=== PATIENT | male | born 1990 | race Caucasian/White ===

== ENCOUNTER 2021-03-02 17:44 | Inpatient (IN) ==
--- OUTSIDE RECORDS SUMMARY | 2021-03-02 17:47 | External Medical Summary | Continuity of Care Document ---
:1990 Author Name Tim Ochoa, Provider Address Unavailable Unavailable , Care Team Providers Name Role Phone Zafar Pierre DMD Unavailable [email or web address] GLYNN ANDRADE Unavailable Unavailable Unavailable Unavailable Unavailable Assessments Assessment Narrative:Lilia is doing very well, the lip is very well healed and looks great, no numbness noted. The scarline is getting softer and the cosmetics looks good. Lilia is pleased with the results. 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) Allergies and Adverse Reactions No Known Drug Allergies (Allergy) Medications No Reported Medications Refills: 0 Procedures History of Oral Surgery Tooth Extraction Status: Completed History of Tonsillectomy Status: Complet ed History of Surgery Testis Orchiectomy St atus: Completed Immunizations Immunizations not documented Family History Unknown Family Member Family history of Heart Disease (V17.49) Status: Active Comments: Family History Family history of Hypertension (V17.49) Status: Active Comments: Family History Family history of Nephrolithiasis Status: Active Commen ts: Family History Family history of Colon Cancer (V16.0) Status: Active C omments: Family History Family history of Ovarian Cancer (V16.41) Status: Active Comments: Family History Father Family history of Diabetes Mellitus (V18.0) Status: Active Social History - Smoking Status Never smoked tobacco Plan of Treatment Planned Observations Planned Goals not documented Results No Known Results Results not documented Encounters Appointment; Zafar Pierre DMD 22-Dec-2018 9:15 Encounter Diagnosis: Problem not documented
--- OUTSIDE RECORDS SUMMARY | 2021-03-02 17:47 | External Medical Summary | Continuity of Care Document ---
:1990 Author Name Tim Ochoa, Provider Address Unavailable Unavailable , Care Team Providers Name Role Phone Zafar Pierre DMD Unavailable [email or web address] GLYNN ANDRADE Unavailable Unavailable Unavailable Unavailable Unavailable Assessments Assessment Narrative:Lilia is doing very well, the lip is very well healed and looks great, no numbness noted. The scarline is getting softer and the cosmetics looks good. Lilia is pleased with the results. 

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
[2021-03-02 19:26] LABS: Appearance Urine Clear (Clear); Bilirubin Urine Negative (Negative); Blood Urine Negative (Negative); Color Urine Yellow; Glucose Urine UA Negative (Negative); Ketones Urine 2+ (Negative); Leukocyte Esterase Urine Negative (Negative); Nitrite Urine Negative (Negative); Protein Urine Negative (Negative); Specific Gravity Urine 1.021 (1.000-1.030); Urobilinogen Urine Negative (Negative); pH Urine 6.5 (4.5-7.5)
[2021-03-02 19:43] LABS: Basophils # (auto) 0.04 K/uL (0-0.2); Basophils % (auto) 0.5 %; Eosinophils # (auto) 0.09 K/uL (0-0.5); Eosinophils % (auto) 1.1 %; Hemoglobin 16.4 g/dL (14.0-18.0); Immature Granulocytes # (auto) 0.02 K/uL (0.00-0.02); Immature Granulocytes % (auto) 0.3 %; Lymphocytes # (auto) 1.11 K/uL (1.2-3.4); Mean Corpuscular Hemoglobin 32.3 pg (25-34); Mean Corpuscular Hgb Conc 35.7 g/dL (32-36); Mean Corpuscular Volume 90.6 fL (80-100); Mean Platelet Volume 12.1 fL (7.4-10.4); Monocytes # (auto) 0.62 K/uL (0.11-0.59); Monocytes % (auto) 7.8 %; Neutrophils # (auto) 6.03 K/uL (1.4-6.5); Neutrophils % (auto) 76.3 %; Platelet Count 184 K/uL (130-400); RDW Coefficient of Variation 12.5 % (11.5-14.5); RDW Standard Deviation 41.7 fL (36.4-46.3); Red Blood Count 5.08 M/uL (4.7-6.1); White Blood Count 7.91 K/uL (4.8-10.8)
[2021-03-02 19:50] LABS: Amphetamines+Metham, Urine Neg (Neg); Barbiturates, Urine Neg (Neg); Benzodiazepine, Urine Neg (Neg); Cocaine, Urine Neg (Neg); MDMA (Ecstacy), Urine Neg (Neg); Methadone, Urine Neg (Neg); Opiate, Urine Neg (Neg); Phencyclidine, Urine Neg (Neg)
[2021-03-02 20:06] LABS: BUN Creatinine Ratio 14.4 (10-20); Calcium 8.9 mg/dl (8.5-10.1); Creatinine Clr Calc Pharmacy 119.5 ml/min; Est GFR (African American) 112.7; Est GFR (Non-African American) 97.3; Potassium 3.8 mmol/L (3.5-5.1)
[2021-03-02 20:16] LABS: Albumin Globulin Ratio 1.1 (0.9-2); Bilirubin,Total 0.6 mg/dl (0.2-1); Globulin 3.7 gm/dl (2.5-4.0); Thyroid Stimulating Hormone 2.4 uIu/ml (0.300-4.500); Total Protein 7.7 gm/dl (6.4-8.2)
[2021-03-02 20:28] LABS: Influenza A virus by PCR Negative (Neg); Influenza B virus by PCR Negative (Neg); RSV by PCR Negative (Neg); SARS CoV2 RNA(COVID-19) InHosp NEGATIVE (Negative)
[2021-03-02 20:47] LABS: Acetaminophen < 2 ug/ml (10-30)
[2021-03-02 20:48] LABS: Salicylate < 1.7 mg/dl (2.8-20)
[2021-03-02] MEDS ORDERED: BISMUTH SUBSALICYLATE LIQD 236 ML PO PRN (22:04)
[2021-03-02] MEDS ORDERED: ACETAMINOPHEN 325 MG TAB PO PRN (22:04)
[2021-03-02] MEDS ORDERED: hydrOXYzine HCl 25 MG TAB PO PRN (22:04)
[2021-03-02] MEDS ORDERED: SODIUM CHLORIDE 0.65% NA SOLN 45 ML (OCEAN) PRN (22:04)
[2021-03-02] MEDS ORDERED: ALUMINUM/MAGNESIUM SUSP 30 ML UDC PO PRN (22:04)
[2021-03-02] MEDS ORDERED: MAGNESIUM HYDROXIDE SUSP 30 ML UDC PO PRN (22:04)
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
[2021-03-03] MEDS: NICOTINE 14 MG/24 HR PATCH TD SCH (08:46)
[2021-03-03] MEDS ORDERED: FLUoxetine HCL 10 MG CAP PO STA (09:44)
[2021-03-03] MEDS: NICOTINE POLACRILEX 2 MG GUM MT PRN ×2 (15:30→17:18)
[2021-03-03] MEDS: hydrOXYzine HCl 25 MG TAB PO PRN (21:26)
[2021-03-04] MEDS: FLUoxetine HCL 20 MG CAP PO SCH (07:26)
[2021-03-04] MEDS: NICOTINE 14 MG/24 HR PATCH TD SCH (07:26)
--- NOTE | 2021-03-04 09:38 | Psychiatric Progress Note ---
Date of Service March 04, 2021 Impression / Recommendations Impression 30 y/o single male with a h/o alcohol abuse and untreated depression who presents after a suicide attempt by handgun. Inpatient treatment is medically necessary due to severity of symptoms and risk of suicide if discharged prematurely. (1) Depression with suicidal ideation: 03/03 - Reviewed diagnosis and treatment recommendations, discussed trial of an SSRI, he agreed to fluoxetine. Reviewed risks, benefits and side effects. - Encourage group attendance and participation, work on healthy coping skills and discharge safety plan. - Family meeting with father, plan to secure guns. 03/04 - Fluoxetine increased to 20mg this morning - continue discussion regarding titration as indicated/tolerated - Family meeting with father this morning - Continue to encourage development of healthy and effective coping strategies. - Refer for outpatient psychiatric treatment - Assist with completion of a safety plan (2) Alcohol abuse: 03/03 - Brief intervention was offered and accepted. Intervention was greater than 5 min in length. Brief interventions include: 1. Assess Readiness to Quit, 2. Advise: Help Patient to Reduce or Abstain from Alcohol, 3. Agree: Set Specific, Feasible Goals, 4. Assist: Anticipate barriers, Problem-Solving Solutions. Social work to 5. Arrange: Referrals to appropriate treatment. Summary of intervention: The patient is in precontemplation stage with regards to transtheoretical model of change. The patient is advised to decrease alcohol consumption due to depressant effects and risk of interactions with prescription medications. The patient agreed to ongoing education/discussion and will be provided with recovery materials to continue to education self on how to cope with their condition without drinking. Risk Factors Assessment Male: Yes : Yes Do You Have Access To A Gun?: Yes Health Problems: No Mental Health Diagnoses: Yes Substance Use Disorders: Yes Previous Attempt: Yes Previous Attempt; Highly Lethal: Yes Previous Attempt; Planned: No Previous Attempt; Didn't Tell Anyone: No Family History of Suicide: No Previous Psychiatric Hospitalization: No Hopelessness: No Smoker: Yes Protective Factors Assessment Jain Beliefs: No : No Responsible for Young Children: No Employed: No Stable Relationships: Yes Supportive Family: Yes Good Rapport with Provider: No Interval History Identifying Information LILIA PALOMINO is a 30-year-old M who currently lives in [place] with his father, has a history of depression, and was admitted on 03/02/21 22:04 on a 201 voluntary commitment for suicide attempt by gun. Chief Complaint "Um, I'm pretty good. I had a set back this morning." Review of Systems Notes Constitutional: denied Cardiovascular: denied Respiratory: denied Gastrointestinal: denied Neurological: denied Psychiatric: denies symptoms other than stated above Total of at least 10 systems reviewed, pertinent positives as above and in HPI. Sleep Information Total Hours of Sleep: 7.75 Meal Information Percent Meal Consumed - Breakfast: 100 Percent Meal Consumed - Lunch: 100 Percent Meal Consumed - Dinner: 100 Subjective Subjective Patient was seen & assessed and interval progress reviewed with treatment team. Staff report the patient has been participating in group programming, has been very outgoing and welcoming to peers. His affect is not consistent with his reported mood of depression, but greater concern is for his emotional reactivity when dealing with stressful situations. Pt has a family meeting with his father later this morning. Pt was seen today to assess progress since admission. Pt states he is feeling "pretty good", but admits "I had a set back this morning." Pt states he was on the phone with his mother, who "always has to give some realism" - admitting "she's a tell it like it is person, just like me." Pt states he grew upset with his mother when she began telling him 'if you're waiting around for [father's girlfriend] to feel bad and do what you want, it's not worth your time. You're 30, you need to start dealing with these things'. Pt states that he hung up on his mother for saying this and "telling me what to think." He did call her back to apologize shortly after and states they did reconcile quickly. Pt did admit his mother had a point and states "I'm not giving up my efforts, but I am realizing that if things don't go my way that it's not the end of the world. I have enough other friends and supports. Pt was encouraged to continue to focus on coping strategies and safety planning techniques that could prevent acts of furtherance on suicidal thinking in the future. Pt currently feels "it's just something I'll never think of again" - and that this is sufficient. Pt admits to belief that he is bipolar - this provider agreed that he is emotionally reactive and that he would benefit from working on skills to address this - but that bipolar disorder is not a current diagnosis. Pt denied SI, but agreed that he feels he would benefit from additional time in group programming and monitoring for stability of mood. Physical Exam Psychiatric Orientation: alert, oriented x 3 and cooperative Apperance: appropriately dressed, appropriately groomed and appeared stated age Eye Contact: + fair eye contact Motor Behavior: no abnormal motor movements Speech: + loud speech (hyperverbal, but not pressured or rapid) Affect: euthymic affect Mood: no depressed mood ("much better with that pill") Thought Process: goal directed thought process and + concrete thought process Thought Content: + cognitive distortions Suicidal Thoughts: denies suicidal thoughts and denies suicidal intent Homicidal Thoughts: denies homicidal thoughts Hallucinations: no auditory hallucinations and no visual hallucinations Cognition: attention grossly intact and language grossly intact Estimated Intelligence: + below average estimated intelligence Insight: + limited insight Judgement: + limited judgement Vital Signs (Past 24 Hours) Last Vital Signs Temp 36.6 C 03/04/21 06:00 Pulse 66 03/04/21 06:00 Resp 16 03/04/21 06:00 BP 106/71 03/04/21 06:00 Pulse Ox 100 03/02/21 21:30 Results & Data ([facility]) Current Inpatient Medications Current Inpatient Medications: Current Inpatient Medications Acetaminophen (Acetaminophen 325 Mg Tab) 650 mg PO Q4H PRN PRN Reason: Headache or Minor Fever Stop: 04/01/21 22:03 Last Admin: 03/03/21 19:40 Dose: 650 mg Documented by: Al Hydrox/Mg Hydrox/Simethicone (Aluminum/Magnesium Susp 30 Ml Udc) 30 ml PO Q4H PRN PRN Reason: GI Upset Stop: 04/01/21 22:03 Bismuth Subsalicylate (Bismuth Subsalicylate Liqd 236 Ml) 15 ml PO PRN PRN PRN Reason: Loose Stool Stop: 04/01/21 22:03 Fluoxetine HCl (Fluoxetine Hcl 20 Mg Cap) 20 mg PO QAM [facility] Stop: 04/03/21 08:59 Last Admin: 03/04/21 07:26 Dose: 20 mg Documented by: Hydroxyzine HCl (Hydroxyzine Hcl 25 Mg Tab) 50 mg PO HSZ PRN PRN Reason: Insomnia Stop: 04/01/21 22:03 Last Admin: 03/03/21 21:26 Dose: 50 mg Documented by: Hydroxyzine HCl (Hydroxyzine Hcl 25 Mg Tab) 25 mg PO Q4H PRN PRN Reason: Anxiety Stop: 04/01/21 22:03 Last Admin: 03/03/21 03:17 Dose: 25 mg Documented by: Magnesium Hydroxide (Magnesium Hydroxide Susp 30 Ml Udc) 30 ml PO DAILY PRN PRN Reason: Constipation Stop: 04/01/21 22:03 Miscellaneous (Remove Nicoderm Patch) 1 ea N/A DAILY@0859 [facility] Stop: 04/02/21 08:58 Last Admin: 03/04/21 07:29 Dose: Not Given Documented by: Nicotine (Nicotine 14 Mg/24 Hr Patch) 14 mg TD QAM [facility] Stop: 04/02/21 08:59 Last Admin: 03/04/21 07:26 Dose: 14 mg Documented by: Nicotine Polacrilex (Nicotine Polacrilex 2 Mg Gum) 1 piece MT PRN PRN PRN Reason: nicotine cravings Stop: 04/02/21 14:54 Last Admin: 03/03/21 17:18 Dose: 1 piece Documented by: Sodium Chloride (Sodium Chloride 0.65% Na Soln 45 Ml ([place])) 1 - 2 sprays NA PRN PRN PRN Reason: Nasal Dryness/Congestion Stop: 04/01/21 22:03 Mental Health & Subst Abuse Tx Therapist Name of Therapist: None Reports Developer Name of Reports Developer: None
[2021-03-04] MEDS: NICOTINE POLACRILEX 2 MG GUM MT PRN ×3 (16:21→21:14)
[2021-03-04] MEDS: hydrOXYzine HCl 25 MG TAB PO PRN (21:55)
[2021-03-05 05:05] LABS: Marijuana Quant, GCMS Urine 1990 ng/mL (<5)
[2021-03-05] MEDS: FLUoxetine HCL 20 MG CAP PO SCH (07:59)
[2021-03-05] MEDS: NICOTINE 14 MG/24 HR PATCH TD SCH (08:00)
[2021-03-05] MEDS: NICOTINE POLACRILEX 2 MG GUM MT PRN ×4 (10:29→20:34)
--- NOTE | 2021-03-05 11:38 | Psychiatric Progress Note ---
Date of Service March 05, 2021 Impression / Recommendations Impression 30 y/o single male with a h/o alcohol abuse and untreated depression who presents after a suicide attempt by handgun. Inpatient treatment is medically necessary due to severity of symptoms and risk of suicide if discharged prematurely. (1) Depression with suicidal ideation: 03/03 - Reviewed diagnosis and treatment recommendations, discussed trial of an SSRI, he agreed to fluoxetine. Reviewed risks, benefits and side effects. - Encourage group attendance and participation, work on healthy coping skills and discharge safety plan. - Family meeting with father, plan to secure guns. 03/04 - Fluoxetine increased to 20mg this morning - continue discussion regarding titration as indicated/tolerated - Family meeting with father this morning - Continue to encourage development of healthy and effective coping strategies. - Refer for outpatient psychiatric treatment - Assist with completion of a safety plan 03/05 - Continue current medication regimen - Family meting with father yesterday - confirmed father has secured firearms - Continue to encourage participation in group programming - Confirm outpatient psychiatric appointments - patient was referred to [facility] for psychiatry/therapy as well as the [facility] for a nurse case manager. (2) Alcohol abuse: 03/03 - Brief intervention was offered and accepted. Intervention was greater than 5 min in length. Brief interventions include: 1. Assess Readiness to Quit, 2. Advise: Help Patient to Reduce or Abstain from Alcohol, 3. Agree: Set Specific, Feasible Goals, 4. Assist: Anticipate barriers, Problem-Solving Solutions. Social work to 5. Arrange: Referrals to appropriate treatment. Summary of intervention: The patient is in precontemplation stage with regards to transtheoretical model of change. The patient is advised to decrease alcohol consumption due to depressant effects and risk of interactions with prescription medications. The patient agreed to ongoing education/discussion and will be provided with recovery materials to continue to education self on how to cope with their condition without drinking. 03/05 - Pt started on recovery protocol yesterday, spent time speaking with our counselors about his perception of the impact of his alcohol use. - Pt continues to be in the precontemplation stage, and does not feel that his alcohol or cannabis use are concerning. Risk Factors Assessment Male: Yes : Yes Do You Have Access To A Gun?: Yes Health Problems: No Mental Health Diagnoses: Yes Substance Use Disorders: Yes Previous Attempt: Yes Previous Attempt; Highly Lethal: Yes Previous Attempt; Planned: No Previous Attempt; Didn't Tell Anyone: No Family History of Suicide: No Previous Psychiatric Hospitalization: No Hopelessness: No Smoker: Yes Protective Factors Assessment Uatsdin Beliefs: No : No Responsible for Young Children: No Employed: No Stable Relationships: Yes Supportive Family: Yes Good Rapport with Provider: No Interval History Identifying Information LILIA PALOMINO is a 30-year-old M who currently lives in [place] with his father, has a history of depression, and was admitted on 03/02/21 22:04 on a 201 voluntary commitment for suicide attempt by gun. Chief Complaint "Um, better now." Review of Systems Notes Constitutional: denied Cardiovascular: denied Respiratory: denied Gastrointestinal: denied Neurological: denied Psychiatric: denies symptoms other than stated above Total of at least 10 systems reviewed, pertinent positives as above and in HPI. Sleep Information Total Hours of Sleep: 7 Meal Information Percent Meal Consumed - Breakfast: 100 Percent Meal Consumed - Lunch: 100 Percent Meal Consumed - Dinner: 100 Subjective Subjective Patient was seen & assessed and interval progress reviewed with nursing and soc ial work. Staff report the patient continues to be supportive of peers and has been participating in group programming. He did call his father's girlfriend to apologize for his role in their argument prior to his admission, the call reportedly went well. Family meeting held with father yesterday, who confirmed that firearms are secured. Pt was seen today to assess progress since admission. Pt states he is feeling "better now." He begins by sharing that he called his father girlfriend yesterday to apologize. He states that one of the counselors sat in on the call and commented about how the patient was able to handle the call. Pt admits that he feels his father and father's girlfriend do not interact with him as much as he desires, but he also admits that his response to this is generally to get angry and make hurtful comments. Patient was asked if he feels this has been a productive approach for him in the past, which he denied. He admits "It's probably not the best way to handle it, but I also don't want people just taking me for granted." Pt states that he is planning to spend some time with a friend after he is discharged, rather than returning straight home. Pt continues to tolerate medications and denies side effects. We reviewed the "stop light" exercise he completed during group yesterday, and focused on the warning signs that would indicate he is about to h ave an angry outburst. Pt continues to make statements indicating an external locus of control, but has been a bit more open to admitting he may play a role in upsetting situations. Pt continues to deny SI/HI and reports feeling as though he could be ready for discharge as soon as tomorrow. He denied other needs or concerns today. Physical Exam Psychiatric Orientation: alert and oriented x 3 Apperance: appropriately dressed, appropriately groomed and appeared stated age Eye Contact: + fair eye contact Motor Behavior: no abnormal motor movements fidgeting with a stress ball Speech: normal rate and rhythm, very loud volume. Irritable tone at times when expressing frustrations surrounding family dynamics. Affect: euthymic affect episodes of frustration displayed at times, specifically when replaying conversations he had with parents Mood: no depressed mood and no anxious mood "better now" Thought Process: goal directed thought process and + concrete thought process Thought Content: + cognitive distortions; no hopelessness and no worthlessness Suicidal Thoughts: denies suicidal thoughts, denies suicidal plan and denies suicidal intent Homicidal Thoughts: denies homicidal thoughts and denies homicidal intent Hallucinations: no auditory hallucinations and no visual hallucinations Cognition: attention grossly intact and language grossly intact Estimated Intelligence: + below average estimated intelligence Insight: + limited insight Judgement: + limited judgement Vital Signs (Past 24 Hours) Last Vital Signs Temp 36.3 C L 03/05/21 06:00 Pulse 75 03/05/21 06:42 Resp 16 03/05/21 06:00 BP 107/61 03/05/21 06:42 Pulse Ox 100 03/02/21 21:30 Results & Data ([facility]) Laboratory Results Laboratory Results - last 24 hr 03/02/21 19:07 U Marijuana THC Carboxy 1989 H Drug Screen Comment SEE NOTE Current Inpatient Medications Current Inpatient Medications: Current Inpatient Medications Acetaminophen (Acetaminophen 325 Mg Tab) 650 mg PO Q4H PRN PRN Reason: Headache or Minor Fever Stop: 04/01/21 22:03 Last Admin: 03/03/21 19:40 Dose: 650 mg Documented by: Al Hydrox/Mg Hydrox/Simethicone (Aluminum/Magnesium Susp 30 Ml Udc) 30 ml PO Q4H PRN PRN Reason: GI Upset Stop: 04/01/21 22:03 Bismuth Subsalicylate (Bismuth Subsalicylate Liqd 236 Ml) 15 ml PO PRN PRN PRN Reason: Loose Stool Stop: 04/01/21 22:03 Fluoxetine HCl (Fluoxetine Hcl 20 Mg Cap) 20 mg PO QAM [facility] Stop: 04/03/21 08:59 Last Admin: 03/05/21 07:59 Dose: 20 mg Documented by: Hydroxyzine HCl (Hydroxyzine Hcl 25 Mg Tab) 50 mg PO HSZ PRN PRN Reason: Insomnia Stop: 04/01/21 22:03 Last Admin: 03/04/21 21:55 Dose: 50 mg Documented by: Hydroxyzine HCl (Hydroxyzine Hcl 25 Mg Tab) 25 mg PO Q4H PRN PRN Reason: Anxiety Stop: 04/01/21 22:03 Last Admin: 03/03/21 03:17 Dose: 25 mg Documented by: Magnesium Hydroxide (Magnesium Hydroxide Susp 30 Ml Udc) 30 ml PO DAILY PRN PRN Reason: Constipation Stop: 04/01/21 22:03 Miscellaneous (Remove Nicoderm Patch) 1 ea N/A DAILY@0859 [facility] Stop: 04/02/21 08:58 Last Admin: 03/05/21 08:01 Dose: 1 ea Documented by: Nicotine (Nicotine 14 Mg/24 Hr Patch) 14 [facility] Stop: 04/02/21 08:59 Last Admin: 03/05/21 08:00 Dose: 14 mg Documented by: Nicotine Polacrilex (Nicotine Polacrilex 2 Mg Gum) 1 piece MT PRN PRN PRN Reason: nicotine cravings Stop: 04/02/21 14:54 Last Admin: 03/05/21 10:29 Dose: 1 piece Documented by: Sodium Chloride (Sodium Chloride 0.65% Na Soln 45 Ml ([place])) 1 - 2 sprays NA PRN PRN PRN Reason: Nasal Dryness/Congestion Stop: 04/01/21 22:03 Mental Health & Subst Abuse Tx Therapist Name of Therapist: None Supervisor Fertilizer Processing Name of Supervisor Fertilizer Processing: None Post Discharge Appointments Primary Care Physician Name Of Family Doctor: Dr. Lynch
[2021-03-05] MEDS: hydrOXYzine HCl 25 MG TAB PO PRN (21:52)
[2021-03-06] MEDS: FLUoxetine HCL 20 MG CAP PO SCH (07:29)
[2021-03-06] MEDS: NICOTINE 14 MG/24 HR PATCH TD SCH (07:30)
[2021-03-06] MEDS: NICOTINE POLACRILEX 2 MG GUM MT PRN ×2 (08:57→13:20)
--- NOTE | 2021-03-06 17:38 | Discharge Summary ---
Date of Service March 06, 2021 History of Present Illness Patient presented to the ER reporting worsening depression over the past several months, and said that several days prior he used his father's .357 to play "[employer] He pulled the trigger once, and then stopped. He denied being under the influence of drugs or alcohol at this time. He told a friend who encouraged him come to the hospital. He reported multiple stressors, including a good friend's father 2 months ago, he lost his job in October, and disagreements with his girlfriend. Admission labs were unremarkable other than UDS + THC. He signed in voluntarily. On my assessment he reports some of his friends talked to his father who told them he'd tried to commit suicide last week, and they encouraged him to get help. Mood has been worsening in the context of multiple stressors, "my dad's girlfriend's not nice to me, her son is in [employer] for a meth lab. She's half the reason this stuff has happened." She is often at his father's house. 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 He has been having suicidal thoughts for the past year "in the back of my head," and they intensified over the past couple of months. He says he impulsively decided to shoot himself last week, stated he just woke up in a bad mood and then had an argument with his father's girlfriend, got his father's handgun which was loaded, took all the bullets out except for 1, and held it to his head and pulled the trigger. He then got scared and stopped, but didn't tell anyone until Tuesday, "and then here we are." Reports anxiety which he describes as "I don't like being by myself, I get worried, I just want someone to come in the house and hang out with me. I get lonely." Reports "motivation is terrible," distancing self from others, and sleep disruption (4-6 hours/night), poor focus. Denies changes in appetite, energy. Denies panic, giles, psychosis. His goal is to improve his self confidence, stating his father's girlfriend has caused him to lose his. He states stress at home is another concern, has never lived on his own, blames father's girlfriend for much of his distress. 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 Physical Exam Psychiatric Orientation: alert, oriented x 3 and cooperative Apperance: appropriately dressed and appeared stated age Motor Behavior: steady gait and station and no abnormal motor movements Speech: normal rate/rhythm/volume of speech Affect: euthymic affect The patient's affect at times was slightly odd or idiosyncratic. "I am in a good mood!" Thought Process: goal directed thought process Thought Content: reality based without delusions Suicidal Thoughts: denies suicidal thoughts and denies suicidal plan Homicidal Thoughts: denies homicidal thoughts and denies homicidal plan Hallucinations: no auditory hallucinations and no visual hallucinations Cognition: recent memory grossly intact, remote memory grossly intact, attention grossly intact and language grossly intact Estimated Intelligence: average estimated intelligence Insight: + fair insight Judgement: good judgement Vital Signs (Past 24 Hours) Last Vital Signs Temp 36.4 C L 03/06/21 11:12 Pulse 65 03/06/21 11:12 Resp 16 03/06/21 11:12 BP 106/71 03/06/21 11:12 Pulse Ox 100 03/06/21 11:12 Principal Diagnosis Major Depressive Disorder, Recurrent, Severe, without Psychotic Features Psychiatric Data During the course of hospitalization the patient was offered various modalities of psychiatric treatment and education. These included individual, group, recreational, and chemotherapy. In addition, family interventions were provided with the patient's permission. The patient participated very actively in various group therapies and focused on issues specific to his self-esteem, causes for optimism going forward, and improved individual coping strategies. Among the benefits that the patient identified as part of his treatment on the unit was that he came to realize that there is, in fact, cause for optimism; that he is able to form supportive alliances with other people; and that he has been able to experience what is like "to feel happy," which he says is something that he will keep in mind in the event that his depression exacerbates in the future. More specifically, he reported that he now realizes that he can, in fact, feel happy and that he can choose this as a reasonable goal for the long- term. The patient also was able to definitively state that he is extremely ricardo that he did not actually shoot himself while playing [employer] He notes that there were 7 chambers and the gun, and only one bullet, so his chances of dying are only 1 and 7, but he notes, "I cannot believe that I took even a 1 and 7 chance." He was also able to look at the fact that his act seem to be very impulsive, and he said that it was impulsive, but he had been feeling hopeless and helpless for some time and that he believes that now the likelihood of similar impulsive acts is significantly diminished for the various reasons identified above. He strongly and convincingly denies any ongoing suicidal ideation, and points the fact that he has never before engaged in any sort of similar reckless, dangerous behaviors. Also, the patient reports that although he had been told that the addition of an antidepressant medication such as Prozac may not provide significant benefit for a matter of several weeks, he says that he feels that he can already tell the difference that Prozac has made in terms of his mood. Specifically, the patient says that he began to feel more "calm" and less tense after the first several doses of Prozac, and he feels optimistic that the improvement will be continued and/or sustained. Further, the patient reports that he is not experiencing any side effects associated with Prozac. The treatment team is in agreement that the patient has now received maximum benefit from inpatient psychiatric hospitalization and is now sufficiently stable clinically, and sufficiently competent mentally to be able to safely and effectively continue his treatment on an outpatient basis. The patient does acknowledge his difficulty with alcohol, and tells us that he is committing to sobriety and knows that he is going to be receiving chemical dependency outpatient treatment as part of his psychiatric treatment at "[facility]." Day of Discharge Assessment On the day of admission, the patient was found to be pleasant and cooperative. He was appropriately dressed and groomed. Some of his mannerisms and to some extent his affect and speech were perhaps slightly idiosyncratic or odd, but generally speaking his habitus appeared calm and steady. Patient speech was delivered at a normal rate and rhythm. The patient's thought processes demonstrated tight associations. There was no evidence of any delusional material in the patient's thought content, and he focused on his plans for future success through treatment on an outpatient basis. The patient also reported that he is not experiencing any perceptual disturbances and has never had the experience of "hearing voices" or experiencing visual hallucinations. He convincingly reports that he is not experiencing any thoughts of suicide. He is future oriented, and is able to talk in some detail about his plan for community safety. He notes that he had initially thought about living with a friend, rather than his father, but has come to realize that it is in his best interest to live with his father because his father will be in a better position to help him stick to his treatment goals. The patient also reports that he is having no thoughts of causing physical harm to the person or property of others. At times, the patient had a tendency to be somewhat concrete, but his intelligence seems to be about average. The patient's judgment is good, and his insight seems to be fair. Transition of Care Transition Of Care Record: was reviewed with the patient Advance Directives Advance Directives Information Provided: Yes Advance Directives: No Mental Health Advance Directive: No Advance Directives on File: No Living Will: No Power of Engine Builder: No Advance Directives Reason:: Declines as Mental Health Visit. Risk Factors Assessment History of playing [employer] with a loaded gun. History of major mental illness. History of alcohol abuse. Limited support network. Mitigating factors include strong motivation to treatment, and favorable response to treatment.. Male: Yes : Yes Do You Have Access To A Gun?: Yes Health Problems: No Mental Health Diagnoses: Yes Substance Use Disorders: Yes Previous Attempt: Yes Previous Attempt; Highly Lethal: Yes Previous Attempt; Planned: No Previous Attempt; Didn't Tell Anyone: No Family History of Suicide: No Previous Psychiatric Hospitalization: No Hopelessness: No Smoker: Yes Protective Factors Assessment Sikh Beliefs: No : No Responsible for Young Children: No Employed: No Stable Relationships: Yes Supportive Family: Yes Good Rapport with Provider: No Tobacco Cessation at Discharge Tobacco Cessation Medication Prescribed at Discharge: Offered & Pt Refused Total Time Total Time Spent: Greater Than 30 Minutes Total Time Includes: Examination of the patient, Discharge Planning, Medication Reconciliation and Communication with other providers Discharge Data Lab Results 03/02/21 03/02/21 03/02/21 19:07 19:07 19:07 WBC RBC Hgb Hct MCV MCH MCHC RDW Std Deviation RDW Coeff of Raymundo Plt Count MPV Immature Gran % (Auto) Neut % (Auto) Lymph % (Auto) [place] % (Auto) Eos % (Auto) Baso % (Auto) Neut # (Auto) Lymph # (Auto) [place] # (Auto) Eos # (Auto) Baso # (Auto) Immature Gran # (Auto) Sodium Potassium Chloride Carbon Dioxide Anion Gap BUN Creatinine Est Cr Clr Drug Dosing Est GFR ( Amer) Est GFR (Non-Af Amer) BUN/Creatinine Ratio Glucose Calcium Total Bilirubin AST ALT Alkaline Phosphatase Total Protein Albumin Globulin Albumin/Globulin Ratio TSH Urine Color Yellow Urine Appearance Clear Urine pH 6.5 Ur Specific [place] 1.021 Urine Protein Negative Urine Glucose (UA) Negative Urine Ketones 2+ H Urine Blood Negative Urine Nitrite Negative Urine Bilirubin Negative Urine Urobilinogen Negative Ur Leukocyte Esterase Negative Salicylates Urine Opiates Screen Neg Ur Methadone, Qual Neg Acetaminophen Urine Barbiturates Neg Ur Phencyclidine (PCP) Neg U Amphetamin/Meth Scrn Neg MDMA (Ecstasy) Screen Neg U Benzodiazepines Scrn Neg Ur Cocaine Metabolite Neg U Marijuana (THC) Screen Pos H U Marijuana THC Carboxy 1990 H Drug Screen Comment SEE NOTE Ethyl Alcohol mg/dL COVID-19 Eval Order SARS-CoV-2 (PCR) Influenza Type A (PCR) Influenza Type B (PCR) RSV (RT-PCR) 03/02/21 03/02/21 03/02/21 19:10 19:10 19:25 WBC 7.91 RBC 5.08 Hgb 16.4 Hct 46.0 MCV 90.6 MCH 32.3 MCHC 35.7 RDW Std Deviation 41.7 RDW Coeff of Raymundo 12.5 Plt Count 184 MPV 12.1 H Immature Gran % (Auto) 0.3 Neut % (Auto) 76.3 Lymph % (Auto) 14.0 [place] % (Auto) 7.8 Eos % (Auto) 1.1 Baso % (Auto) 0.5 Neut # (Auto) 6.03 Lymph # (Auto) 1.11 L [place] # (Auto) 0.62 H Eos # (Auto) 0.09 Baso # (Auto) 0.04 Immature Gran # (Auto) 0.02 Sodium Potassium Chloride Carbon Dioxide Anion Gap BUN Creatinine Est Cr Clr Drug Dosing Est GFR ( Amer) Est GFR (Non-Af Amer) BUN/Creatinine Ratio Glucose Calcium Total Bilirubin AST ALT Alkaline Phosphatase Total Protein Albumin Globulin Albumin/Globulin Ratio TSH Urine Color Urine Appearance Urine pH Ur Specific [place] Urine Protein Urine Glucose (UA) Urine Ketones Urine Blood Urine Nitrite Urine Bilirubin Urine Urobilinogen Ur Leukocyte Esterase Salicylates Urine Opiates Screen Ur Methadone, Qual Acetaminophen Urine Barbiturates Ur Phencyclidine (PCP) U Amphetamin/Meth Scrn MDMA (Ecstasy) Screen U Benzodiazepines Scrn Ur Cocaine Metabolite U Marijuana (THC) Screen U Marijuana THC Carboxy Drug Screen Comment Ethyl Alcohol mg/dL COVID-19 Eval Order CovFluRsv at [facility] SARS-CoV-2 (PCR) NEGATIVE Influenza Type A (PCR) Negative Influenza Type B (PCR) Negative RSV (RT-PCR) Negative 03/02/21 03/02/21 03/02/21 19:25 19:25 19:25 WBC RBC Hgb Hct MCV MCH MCHC RDW Std Deviation RDW Coeff of Raymundo Plt Count MPV Immature Gran % (Auto) Neut % (Auto) Lymph % (Auto) [place] % (Auto) Eos % (Auto) Baso % (Auto) Neut # (Auto) Lymph # (Auto) [place] # (Auto) Eos # (Auto) Baso # (Auto) Immature Gran # (Auto) Sodium 138 Potassium 3.8 Chloride 105 Carbon Dioxide 28 Anion Gap 5.0 BUN 15 Creatinine 1.04 Est Cr Clr Drug Dosing 119.5 Est GFR ( Amer) 112.7 Est GFR (Non-Af Amer) 97.3 BUN/Creatinine Ratio 14.4 Glucose 88 Calcium 8.9 Total Bilirubin 0.6 AST 12 L ALT 29 Alkaline Phosphatase 91 Total Protein 7.7 Albumin 4.0 Globulin 3.7 Albumin/Globulin Ratio 1.1 TSH 2.400 Urine Color Urine Appearance Urine pH Ur Specific [place] Urine Protein Urine Glucose (UA) Urine Ketones Urine Blood Urine Nitrite Urine Bilirubin Urine Urobilinogen Ur Leukocyte Esterase Salicylates < 1.7 L Urine Opiates Screen Ur Methadone, Qual Acetaminophen < 2 L Urine Barbiturates Ur Phencyclidine (PCP) U Amphetamin/Meth Scrn MDMA (Ecstasy) Screen U Benzodiazepines Scrn Ur Cocaine Metabolite U Marijuana (THC) Screen U Marijuana THC Carboxy Drug Screen Comment Ethyl Alcohol mg/dL < 3.0 COVID-19 Eval Order SARS-CoV-2 (PCR) Influenza Type A (PCR) Influenza Type B (PCR) RSV (RT-PCR) Hospital Course (1) Depression with suicidal ideation: 03/03 - Reviewed diagnosis and treatment recommendations, discussed trial of an SSRI, he agreed to fluoxetine. Reviewed risks, benefits and side effects. - Encourage group attendance and participation, work on healthy coping skills and discharge safety plan. - Family meeting with father, plan to secure guns. 03/04 - Fluoxetine increased to 20mg this morning - continue discussion regarding titration as indicated/tolerated - Family meeting with father this morning - Continue to encourage development of healthy and effective coping strategies. - Refer for outpatient psychiatric treatment - Assist with completion of a safety plan 03/05 - Continue current medication regimen - Family meting with father yesterday - confirmed father has secured firearms - Continue to encourage participation in group programming - Confirm outpatient psychiatric appointments - patient was referred to [facility] for psychiatry/therapy as well as the [facility] for a insurance case manager. 03/06 -The patient convincingly reports that he is not experiencing any thoughts of suicide. His thoughts are clearly future oriented, and he reports that his mood has substantially improved during the hospitalization as a function of both his antidepressant medication, and, to a greater extent, the skills and expanded, optimistic outlook that he has developed through group therapy. He also reports that his self-esteem has been lifted through interactions in the hospital. -The patient's father confirms that the firearms have been secured in a locked cabinet and the patient will not have access to them. -The patient is being discharged as improved and safe to return for continued treatment on an outpatient basis. (2) Alcohol abuse: 03/03 - Brief intervention was offered and accepted. Intervention was greater than 5 min in length. Brief interventions include: 1. Assess Readiness to Quit, 2. Advise: Help Patient to Reduce or Abstain from Alcohol, 3. Agree: Set Specific, Feasible Goals, 4. Assist: Anticipate barriers, Problem-Solving Solutions. Social work to 5. Arrange: Referrals to appropriate treatment. Summary of intervention: The patient is in precontemplation stage with regards to transtheoretical model of change. The patient is advised to decrease alcohol consumption due to depressant effects and risk of interactions with prescription medications. The patient agreed to ongoing education/discussion and will be provided with recovery materials to continue to education self on how to cope with their condition without drinking. 03/05 - Pt started on recovery protocol yesterday, spent time speaking with our counselors about his perception of the impact of his alcohol use. - Pt continues to be in the precontemplation stage, and does not feel that his alcohol or cannabis use are concerning. 03/06 -The patient says that he realizes that he has a problem with alcohol and that has contributed to his depression and possibly to certain impulsive behaviors. He says that he feels that he cannot commit to sobriety, but also understands that this will be a process and that he will need to "work hard" and dual diagnosis outpatient treatment as arranged. Mental Health & Subst Abuse Tx Psychiatrist Name of Psychiatrist: Jens Shook Psychiatric Appointment Comment: will be scheduled after therapy appt Psychiatrist Release of Information: Obtained, Reviewed and Signed Therapist Name of Therapist: Jens Higgins Therapist's Date of Therapist Appointment: 03/13/21 Time of Therapist Appointment: 10am Therapy Appointment Comment: telehealth Therapist Release of Information: Obtained, Reviewed and Signed Campaign Advisor Name of Campaign Advisor: KRISTINA Phone Number for Campaign Advisor: [phone] Case Management Appointment Comment: They will call you to schedule Campaign Advisor Release of Information: Obtained, Reviewed and Signed Post Discharge Appointments Primary Care Physician Name Of Family Doctor: Dr. Lynch Primary [facility] Date of Appointment with PCP: 03/10/21 Time of Appointment with PCP: 10:45 Provider Appointment Comment: [address] [place] [id number] Please bring ins card Primary Care Release of Information: Obtained, Reviewed and Signed Smoking Cessation Counseling Tobacco Cessation Medication Prescribed at Discharge: Offered & Pt Refused Contact Information Discharge Discharge Address: [address] [place] [id number] Discharge Plan Discharge Items Patient Disposition: Home - Self-Care Reason For Visit: MDD Discharge Diagnosis: Major Depression Disorder, Severe, without Psychotic Features Activity: Resume your previous activity Non-emergency contact: Primary Care Provider Call non-emergency contact if: you have any medication questions and your symptoms worsen Follow-up/Referrals: Deondre Lynch MD [Primary Care Provider] - Diet: Regular Addtl Attending Provider Instructions: SPECIAL CARE INSTRUCTIONS: 1. Follow through with your scheduled aftercare appointments. If unable to keep an appointment, please call to reschedule. 2. Take your medication only as prescribed. Medication should not be changed or stopped without the approval of your doctor. In the event of worsening symptoms or concerns about side effects, contact your doctor immediately. 3. Utilize new healthy coping skills, anger management skills, and stress management skills learned during your hospitalization. Journal feelings and process them with a support person. Identify stressors or situations that may result in relapse, deterioration or inappropriate behaviors and develop a plan to deal with those issues. 4. If your coping skills are ineffective and you are in crisis, contact your outpatient providers for direction. If unable to reach your providers, please call the [facility] CRISIS LINE AT , go to the [facility] walk-in center at [address], [address], [place], or go to the closest Emergency Room. 5. Avoid alcohol and un-prescribed drugs. 6. You have been provided with the Mental Health Advance Directives Pamphlet for your review. AFTERCARE APPOINTMENTS: * Please call your insurance company prior to your scheduled appointment to confirm your aftercare providers are covered. Take your insurance information to your aidan [email or web address]. WHO TO CALL AND WHEN: Medical Emergencies: For questions or emergencies related to your hospital stay, please contact the Inpatient Behavioral Health Unit at [phone]. A manager channel is on-call 06/06 for the Behavioral Health Unit for emergencies At any time you feel your situation is an emergency, you may also call 911 immediately. Pending Studies at Discharge: No Stand-Alone Forms: My [facility], Smoking Cessation Medications and DC Order Prescriptions: New nicotine 7 mg/24 hr Patch 24 Hour 14 mg transdermal QAM Qty: 14 RF: 0 nicotine (polacrilex) [Nicorette] 2 mg Gum 2 mg MT PRN PRN (Reason: nicotine cravings) Qty: 100 RF: 0 fluoxetine 20 mg Capsule 20 mg PO QAM Qty: 30 RF: 0 Continued cholecalciferol (vitamin D3) [Vitamin D3] 1,000 unit Capsule 1,000 unit PO DAILY RF: 0 Discharge Orders: Discharge Order (Routine); Ordered 03/06/21 Ordered By: Jesse Yeung Admission Data Admit Date/Time: 03/02/21 22:04 Attending Provider: Nely Edward Admit Provider: Juani Ralph Primary Care Provider: Deondre Lynch Other Interventions: Discharge Summary Assessment (RN) Last Done: 03/06/21 11:12 PSY Interdisciplinary Discharge Planning Last Done: 03/06/21 14:00 C[place] [address] D/C day mgmt > 30 min Patient Type Established History Expanded Problem Focused Exam Expanded Problem Focused Medical Decision Making Moderate Complexity Diagnoses Depression with suicidal ideation F32.9; R45.851 Alcohol abuse F10.10 Time Spent (min) 60
== END 2021-03-06 14:50 | disposition home or self-care (01) | DRG 885 ==
LOC: ED 17:44 → 3S 22:04